=== PATIENT | male | born 1945 | race Caucasian/White ===

== ENCOUNTER 2016-06-09 11:16 | Outpatient (CLI) | payer MEDICARE, OTHER | END 2016-06-09 11:17 | disposition home or self-care (01) | DX: R05 Cough (principal) ==

== ENCOUNTER 2016-07-22 10:02 | Day surgery (SDC) | payer MEDICARE, OTHER ==
[2016-07-22] MEDS ORDERED: LACTATED RINGERS 1,000 ML IV ONE ×2 (10:32→12:51)
[2016-07-22] MEDS ORDERED: fentaNYL 100 MCG/2 ML VIAL IVP ONE (12:16)
[2016-07-22] MEDS ORDERED: MIDAZOLAM 2 MG/2 ML VIAL IVP ONE (12:16)
== END 2016-07-22 10:03 | disposition home or self-care (01) ==
PROC: 0DJD8ZZ Inspection of Lower Intestinal Tract, Via Natural or Artificial Opening Endoscopic (ICD-10-PCS; principal; 2016-07-22 11:15)
DX: Z12.11 Encounter for screening for malignant neoplasm of colon (principal); Z80.42 Family history of malignant neoplasm of prostate; N40.0 Benign prostatic hyperplasia without lower urinary tract symptoms; K64.8 Other hemorrhoids; K57.30 Diverticulosis of large intestine without perforation or abscess without bleeding
CPT/HCPCS: G0121; J7120

== ENCOUNTER 2017-10-16 14:11 | Outpatient (CLI) | payer MEDICARE, OTHER | END 2017-10-16 14:12 | disposition home or self-care (01) | LOC: RT.S 14:11 | PROVIDERS: ATTEND Nurse Practitioner Family | DX: R07.9 Chest pain, unspecified (principal) | CPT/HCPCS: 93005 ==

== ENCOUNTER 2017-10-19 10:54 | Outpatient (CLI) | payer MEDICARE, OTHER ==
[2017-10-19 17:50] LABS: BASOPHILS % (AUTO) 0.7 %; EOSINOPHILS # (AUTO) 0.1 10^3/uL (0.0-0.7); EOSINOPHILS % (AUTO) 1.4 %; HGB - HEMOGLOBIN 10.1 g/dL (14.0-18.0); LYMPHOCYTES # (AUTO) 1.2 10^3/uL (1.5-3.5); LYMPHOCYTES % (AUTO) 22.9 %; MEAN CORPUSCULAR HGB CONC 31.7 g/dL (32.0-36.0); MEAN CORPUSCULAR VOLUME 94.4 fL (80.0-94.0); MONOCYTES # (AUTO) 0.4 10^3/uL (0.0-1.0); MONOCYTES % (AUTO) 8.4 %; NEUTROPHILS # (AUTO) 3.4 10^3/uL (1.5-6.6); NEUTROPHILS % (AUTO) 66.6 %; PLT - PLATELET COUNT 245 10^3/uL (130-450); RED BLOOD COUNT 3.38 10^6/uL (4.70-6.10); RED CELL DISTRIBUTION WIDTH 12.6 % (12.0-15.0); WHITE BLOOD COUNT 5.1 x10^3/uL (4.8-10.8)
[2017-10-19 18:50] LABS: ALBUMIN 3.6 g/dL (3.2-5.5); ALBUMIN/GLOBULIN RATIO 0.8 (1.0-2.2); ALKALINE PHOSPHATASE 46 IU/L (42-121); ALT ALANINE AMINOTRANSFERASE 10 IU/L (10-60); AST ASPARTATE AMINOTRANSFERASE 12 IU/L (10-42); BILIRUBIN,TOTAL 0.7 mg/dL (0.2-1.0); BUN - BLOOD UREA NITROGEN 57 mg/dL (6-20); CALCIUM 9.8 mg/dL (8.5-10.3); CARBON DIOXIDE - CO2 24 mmol/L (21-32); CHLORIDE 103 mmol/L (101-111); CHOL/HDL RATIO 12.1 (<5.0); CHOLESTEROL 340 mg/dL; CREATININE 6.4 mg/dL (0.6-1.2); GFR - MDRD 9 (>89); GLUCOSE 85 mg/dL (70-100); HDL CHOLESTEROL 28 mg/dL; LDL CHOLESTEROL,CALCULATED 255 mg/dL; LDL/HDL RATIO 9.1 (<3.6); SODIUM 138 mmol/L (135-145); TOTAL PROTEIN 7.9 g/dL (6.7-8.2); VLDL CHOLESTEROL 57 mg/dL
[2017-10-19 19:48] LABS: HB2 TOTAL 10.8 g/dL; HEMOGLOBIN A1C 0.45 g/dL
== END 2017-10-19 10:55 | disposition home or self-care (01) ==
LOC: LAB.S 10:54
PROVIDERS: ATTEND Nurse Practitioner Family
DX: R07.89 Other chest pain (principal); R73.01 Impaired fasting glucose; Z12.5 Encounter for screening for malignant neoplasm of prostate; E78.5 Hyperlipidemia, unspecified
CPT/HCPCS: 36415; 80053; 80061; 83036; 84443; 85025; G0103; 83721; 84153

== ENCOUNTER 2017-10-21 13:41 | Outpatient (CLI) | payer MEDICARE, OTHER | END 2017-10-21 13:42 | disposition home or self-care (01) | LOC: DI 13:41 | PROVIDERS: ATTEND Nurse Practitioner Family | DX: R07.89 Other chest pain (principal); I51.7 Cardiomegaly | CPT/HCPCS: 93306 ==

== ENCOUNTER 2017-10-21 13:53 | Outpatient (CLI) | payer MEDICARE, OTHER ==
--- NOTE | 2017-10-21 17:12 | Ultrasound Report ---
RETROPERITONEAL ULTRASOUND: 10/21/2017 HISTORY: New acute renal failure. TECHNIQUE: Real-time scanning by the cigar packer with saved static images reviewed. FINDINGS: Right kidney 12.5 x 7 x 5 Cm. Left kidney 12.5 x 6.7 x 5.7 cm. Massive bilateral hydroureteronephrosis. Pre-void bladder volume 1620 mL, post void 1440 mL. Left ureteral jet seen. Right not definitely identified. A bladder diverticulum may be present. Prostate 5 x 4.4 x 6.2 cm, approximately 71 mL. IMPRESSION: BILATERAL HYDROURETERONEPHROSIS SECONDARY TO A MARKEDLY DISTENDED URINARY BLADDER. ENLARGED PROSTATE, VOLUME [address] ML Results called to Dr[address] Heaven Padilla 3:30 p.m. 10/21/2017 and the patient is directed to the emergency room. TD: 10/21/2017 15:47 MTDD
== END 2017-10-21 13:54 | disposition home or self-care (01) ==
LOC: DI 13:53
PROVIDERS: ATTEND Nurse Practitioner Family
DX: N13.30 Unspecified hydronephrosis (principal); N40.0 Benign prostatic hyperplasia without lower urinary tract symptoms
CPT/HCPCS: 76770

== ENCOUNTER 2017-10-21 15:34 | Emergency (ER) | payer MEDICARE, OTHER ==
[2017-10-21 15:42] VITALS: BP 165/89
[2017-10-21] MEDS ORDERED: LIDOCAINE 2% URO-JET 5 ML SYRINGE UR STA (15:46)
--- NOTE | 2017-10-21 16:09 | ED Physician Documentation ---
PD HPI MALE - Stated complaint Stated Complaint: MALE - Chief complaint Chief Complaint: General - History obtained from History obtained from: Patient, Family - History of Present Illness Timing - onset: Unknown Timing - duration: Weeks, Months Timing - details: Gradual onset, Still present Associated symptoms: Urinary frequency Similar symptoms before: Has not had sx before Recently seen: Clinic - Additional information Additional information: 71-year-old male who was previously well and on no medications has developed some exertional dyspnea over the past year. He eventually became concerned and went into see the doctor. He has not seen a physician in 4-5 years. Blood was drawn and the patient was found to have an elevated BUN and creatinine at 57 and 6.9 and an ultrasound was obtained showing hydronephrosis bilaterally and a markedly full bladder. Patient has been sent to the emergency department for evaluation of urinary retention. Review of Systems Constitutional: reports: Fatigue. denies: Fever, Chills, Myalgias Eyes: denies: Decreased vision Ears: denies: Ear pain Nose: denies: Rhinorrhea / runny nose, Congestion Throat: denies: Sore throat Cardiac: reports: Chest pain / pressure. denies: Palpitations Respiratory: reports: Dyspnea. denies: Cough GI: reports: Abdominal Pain. denies: Nausea, Vomiting, Constipation, Diarrhea : reports: Frequency, Hesitancy. denies: Dysuria Skin: denies: Rash Musculoskeletal: denies: Neck pain, Back pain, Extremity pain Neurologic: denies: Generalized weakness, Focal weakness, Numbness PD PAST MEDICAL HISTORY - Past Medical History Cardiovascular: High cholesterol, Murmur Respiratory: None Neuro: Headaches Endocrine/Autoimmune: None GI: GERD, Colon polyps : Benign prostate hypertrophy HEENT: Chronic vision loss Psych: None Musculoskeletal: None Derm: Other - Past Surgical History Past Surgical History: Yes General: Colonoscopy HEENT: Cataracts Derm: Skin cancer surgery - Present Medications Home Medications: Ambulatory Orders Medication Instructions Recorded Confirmed Tamsulosin [Flomax] 0.4 mg PO DAILY #20 capsule 10/21/17 - Allergies Allergies/Adverse Reactions: Allergies Allergy/AdvReac Type Severity Reaction Status Date / Time tetracycline AdvReac Unknown Verified 08/16/14 09:53 - Social History Does the pt smoke?: No Smoking Status: Never smoker Does the pt drink ETOH?: Yes Does the pt have substance abuse?: No PD ED PE NORMAL - Vitals Vital signs reviewed: Yes (hypertension ) - General General: Alert and oriented X 3, No acute distress, Well developed/nourished - HEENT HEENT: Atraumatic, PERRL, EOMI - Neck Neck: Supple, no meningeal sign - Cardiac Cardiac: RRR, No murmur - Respiratory Respiratory: No respiratory distress, Clear bilaterally - Abdomen Abdomen: Soft, Non tender, Other (The bladder is firm non-tender and palpable to the umbilcus) - Back Back: No CVA TTP, No spinal TTP - Derm Derm: Normal color, Warm and dry, No rash - Extremities Extremities: No deformity, No edema - Neuro Neuro: No motor deficit, No sensory deficit Eye Opening: Spontaneous Motor: Obeys Commands Verbal: Oriented GCS Score: 15 - Psych Psych: Normal mood, Normal affect Results - Vitals Vitals: Vital Signs - 24 hr 10/21/17 15:37 Temperature 36.6 C Heart Rate 66 Respiratory 16 Rate Blood Pressure 165/89 H O2 Saturation 100 Oxygen O2 Source Room air PD MEDICAL DECISION MAKING - ED course Complexity details: reviewed results, re-evaluated patient, considered differential, d/w patient, d/w family ED course: 71-year-old male with urinary retention that is been present for at least more than 1 week by evaluation of the creatinine. A Blood catheter is placed in 2 L of urine are drained. I have instructed the patient he will likely need to have the catheter in place for more than 10 days and will need follow-up with urology. I did tell him to expect to have his kidney functions improve over the next several days. Departure - Departure Disposition: 01 Home, Self Care Clinical Impression: Urinary retention Condition: Stable Instructions: ED Retention Urinary Male, ED Catheter Care Blood Follow-Up: Heaven Padilla ARNP [Primary Care Provider] - Prescriptions: Tamsulosin [Flomax] 0.4 mg PO DAILY #20 capsule
[2017-10-21 16:44] LABS: BILIRUBIN,URINE NEGATIVE (NEGATIVE); CLARITY,URINE CLEAR (CLEAR); GLUCOSE, URINE (UA) NEGATIVE (NEGATIVE); KETONES,URINE (UA) NEGATIVE (NEGATIVE); LEUKOCYTE ESTERASE, URINE SMALL (NEGATIVE); NITRITE,URINE NEGATIVE (NEGATIVE); OCCULT BLOOD,URINE TRACE-INTA (NEGATIVE); PROTEIN,URINE 30 mg/dL (NEGATIVE); UROBILINOGEN,URINE 0.2 (NORMAL) E.U./dL (NORMAL)
[2017-10-21 16:53] LABS: BACTERIA,URINE None Seen /HPF (None Seen); RBC,URINE 0-5 /HPF (0-5); SQUAMOUS EPITHELIAL CELL,UR NONE SEEN (<= Few)
== END 2017-10-21 16:36 | disposition home or self-care (01) ==
LOC: ED 15:34
DX: R33.9 Retention of urine, unspecified (principal); E78.00 Pure hypercholesterolemia, unspecified; N17.9 Acute kidney failure, unspecified; R07.89 Other chest pain
CPT/HCPCS: 51702; 76770; 81001; 81003; 87086; 93306; 99283

== ENCOUNTER 2017-10-26 10:50 | Outpatient (CLI) | payer MEDICARE, OTHER ==
[2017-10-26 18:52] LABS: CALCIUM 9.8 mg/dL (8.5-10.3); CREATININE 5.5 mg/dL (0.6-1.2); PSA FREE 7.388 ng/mL (0.16-2.81)
[2017-10-26 18:53] LABS: PSA TOTAL 18.281 ng/mL (0.000-2.000)
== END 2017-10-26 10:51 | disposition home or self-care (01) ==
LOC: LAB.S 10:50
PROVIDERS: ATTEND Nurse Practitioner Family
DX: N17.9 Acute kidney failure, unspecified (principal); R97.20 Elevated prostate specific antigen [PSA]
CPT/HCPCS: 36415; 80048; 82043; 83880; 84154

== ENCOUNTER 2017-12-14 10:42 | Outpatient (CLI) | payer MEDICARE, OTHER ==
[2017-12-14 19:22] LABS: ALBUMIN 3.2 g/dL (3.2-5.5); CALCIUM 9.5 mg/dL (8.5-10.3); CREATININE 4.1 mg/dL (0.6-1.2); PHOSPHORUS 4.3 mg/dL (2.5-4.6)
== END 2017-12-14 10:43 | disposition home or self-care (01) ==
LOC: LAB.S 10:42
PROVIDERS: ATTEND Internal Medicine Nephrology
DX: N18.4 Chronic kidney disease, stage 4 (severe) (principal)
CPT/HCPCS: 36415; 80069

== ENCOUNTER 2017-12-28 11:05 | Outpatient (CLI) | payer MEDICARE, OTHER ==
[2017-12-28 18:23] LABS: ALBUMIN 3.6 g/dL (3.2-5.5); CALCIUM 9.9 mg/dL (8.5-10.3); CREATININE 4.2 mg/dL (0.6-1.2); PHOSPHORUS 3.2 mg/dL (2.5-4.6)
== END 2017-12-28 11:06 | disposition home or self-care (01) ==
LOC: LAB.S 11:05
PROVIDERS: ATTEND Internal Medicine Nephrology
DX: N18.4 Chronic kidney disease, stage 4 (severe) (principal)
CPT/HCPCS: 36415; 80069

== ENCOUNTER 2018-01-11 11:32 | Outpatient (CLI) | payer MEDICARE, OTHER ==
[2018-01-11 20:51] LABS: ALBUMIN 3.5 g/dL (3.2-5.5); CALCIUM 9.6 mg/dL (8.5-10.3); PHOSPHORUS 3.4 mg/dL (2.5-4.6)
== END 2018-01-11 11:33 | disposition home or self-care (01) ==
LOC: LAB.S 11:32
PROVIDERS: ATTEND Internal Medicine Nephrology
DX: N18.4 Chronic kidney disease, stage 4 (severe) (principal)
CPT/HCPCS: 36415; 80069

== ENCOUNTER 2018-01-25 11:23 | Outpatient (CLI) | payer MEDICARE, OTHER ==
[2018-01-25 18:49] LABS: ALBUMIN 3.4 g/dL (3.2-5.5); CALCIUM 9.6 mg/dL (8.5-10.3); CREATININE 4.1 mg/dL (0.6-1.2)
== END 2018-01-25 11:24 ==
LOC: LAB.S 11:23
PROVIDERS: ATTEND Internal Medicine Nephrology
DX: N18.4 Chronic kidney disease, stage 4 (severe) (principal)
CPT/HCPCS: 36415; 80069

== ENCOUNTER 2018-03-08 13:52 | Outpatient (CLI) | payer MEDICARE, OTHER ==
[2018-03-08 19:13] LABS: ALBUMIN 3.6 g/dL (3.2-5.5); CALCIUM 9.5 mg/dL (8.5-10.3); CREATININE 3.8 mg/dL (0.6-1.2); PHOSPHORUS 3.7 mg/dL (2.5-4.6)
== END 2018-03-08 13:53 | disposition home or self-care (01) ==
LOC: LAB.S 13:52
PROVIDERS: ATTEND Internal Medicine Nephrology
DX: N18.4 Chronic kidney disease, stage 4 (severe) (principal)
CPT/HCPCS: 36415; 80069

== ENCOUNTER 2018-04-03 13:13 | Outpatient (CLI) | payer MEDICARE, OTHER ==
[2018-04-03 13:51] LABS: HGB - HEMOGLOBIN 11.6 g/dL (14.0-18.0); MEAN CORPUSCULAR HEMOGLOBIN 31.3 pg (27.0-31.0); MEAN CORPUSCULAR HGB CONC 33.6 g/dL (32.0-36.0); MEAN CORPUSCULAR VOLUME 93.2 fL (80.0-94.0); MEAN PLATELET VOLUME 8.3 fL (7.4-11.4); RED BLOOD COUNT 3.72 10^6/uL (4.70-6.10); RED CELL DISTRIBUTION WIDTH 12.5 % (12.0-15.0)
[2018-04-03 14:03] LABS: % IRON SATURATION 27 % (20-50); ALBUMIN 3.7 g/dL (3.2-5.5); BUN - BLOOD UREA NITROGEN 47 mg/dL (6-20); CALCIUM 9.5 mg/dL (8.5-10.3); CARBON DIOXIDE - CO2 24 mmol/L (21-32); CHLORIDE 107 mmol/L (101-111); CHOL/HDL RATIO 7.1 (<5.0); CHOLESTEROL 212 mg/dL; GFR - MDRD 15 (>89); GLUCOSE 98 mg/dL (70-100); HDL CHOLESTEROL 30 mg/dL; IRON 77 ug/dL (45-182); LDL CHOLESTEROL,CALCULATED 148 mg/dL; LDL/HDL RATIO 4.9 (<3.6); PHOSPHORUS 3.5 mg/dL (2.5-4.6); SODIUM 137 mmol/L (135-145); TOTAL IRON BINDING CAPACITY 284 ug/dL (250-450); TRANSFERRIN 203 mg/dL (180-329); VLDL CHOLESTEROL 34 mg/dL
[2018-04-03 14:19] LABS: FERRITIN 121.6 ng/mL (23.9-336.2)
== END 2018-04-03 13:14 | disposition home or self-care (01) ==
LOC: LAB 13:13
PROVIDERS: ATTEND Internal Medicine Cardiovascular Disease
DX: E78.49 Other hyperlipidemia (principal); N18.5 Chronic kidney disease, stage 5
CPT/HCPCS: 36415; 80061; 80069; 82306; 82728; 83540; 83721; 83970; 84466; 85027

== ENCOUNTER 2018-04-21 10:02 | Outpatient (CLI) | payer MEDICARE, OTHER ==
[2018-04-21 17:45] LABS: ALBUMIN 3.4 g/dL (3.2-5.5); CALCIUM 9.4 mg/dL (8.5-10.3); CREATININE 3.9 mg/dL (0.6-1.2); PHOSPHORUS 3.2 mg/dL (2.5-4.6)
== END 2018-04-21 10:03 | disposition home or self-care (01) ==
LOC: LAB.F 10:02
PROVIDERS: ATTEND Internal Medicine Nephrology
DX: N18.5 Chronic kidney disease, stage 5 (principal)
CPT/HCPCS: 36415; 80069

== ENCOUNTER 2018-06-14 08:00 | Outpatient (CLI) | payer MEDICARE, OTHER ==
[2018-06-14 17:54] LABS: ALBUMIN 3.5 g/dL (3.2-5.5); CALCIUM 9.9 mg/dL (8.5-10.3); CREATININE 3.9 mg/dL (0.6-1.2)
== END 2018-06-14 23:59 | disposition home or self-care (01) ==
LOC: LAB.S 08:00
PROVIDERS: ATTEND Internal Medicine Nephrology
DX: N18.5 Chronic kidney disease, stage 5 (principal)
CPT/HCPCS: 36415; 80069

== ENCOUNTER 2018-07-27 14:21 | Outpatient (CLI) | payer MEDICARE, OTHER ==
[2018-07-27 18:15] LABS: ALBUMIN 3.8 g/dL (3.2-5.5); CALCIUM 9.7 mg/dL (8.5-10.3); CREATININE 3.6 mg/dL (0.6-1.2); PHOSPHORUS 3.4 mg/dL (2.5-4.6)
== END 2018-07-27 14:22 | disposition home or self-care (01) ==
LOC: LAB.F 14:21
PROVIDERS: ATTEND Internal Medicine Nephrology
DX: N18.5 Chronic kidney disease, stage 5 (principal)
CPT/HCPCS: 36415; 80069

== ENCOUNTER 2019-01-20 13:44 | Outpatient (CLI) | payer MEDICARE, OTHER ==
[2019-01-20 18:01] LABS: ALBUMIN 3.6 g/dL (3.2-5.5); CALCIUM 9.3 mg/dL (8.5-10.3); CREATININE 3.7 mg/dL (0.6-1.2); PHOSPHORUS 3.5 mg/dL (2.5-4.6)
== END 2019-01-20 13:45 | disposition home or self-care (01) ==
LOC: LAB.S 13:44
PROVIDERS: ATTEND Internal Medicine Nephrology
DX: N18.5 Chronic kidney disease, stage 5 (principal)
CPT/HCPCS: 36415; 80069

== ENCOUNTER 2019-08-09 09:05 | Outpatient (CLI) | payer MEDICARE, OTHER ==
[2019-08-09 17:19] LABS: ALBUMIN 3.6 g/dL (3.2-5.5); CALCIUM 9.3 mg/dL (8.5-10.3); CREATININE 3.8 mg/dL (0.6-1.2); PHOSPHORUS 3.7 mg/dL (2.5-4.6)
== END 2019-08-09 09:06 | disposition home or self-care (01) ==
LOC: LAB.S 09:05
PROVIDERS: ATTEND Internal Medicine Nephrology
DX: I12.0 Hypertensive chronic kidney disease with stage 5 chronic kidney disease or end stage renal disease (principal); N18.5 Chronic kidney disease, stage 5; N13.739 Vesicoureteral-reflux with reflux nephropathy with hydroureter, unspecified
CPT/HCPCS: 36415; 80069

== ENCOUNTER 2020-04-11 16:24 | Outpatient (CLI) | payer MEDICARE, OTHER ==
[2020-04-11 20:18] LABS: ALBUMIN 3.5 g/dL (3.2-5.5); CALCIUM 9.7 mg/dL (8.5-10.3); PHOSPHORUS 3.3 mg/dL (2.5-4.6)
== END 2020-04-11 16:25 | disposition home or self-care (01) ==
LOC: LAB.S 16:24
PROVIDERS: ATTEND Internal Medicine Nephrology
DX: N18.4 Chronic kidney disease, stage 4 (severe) (principal)
CPT/HCPCS: 36415; 80069

== ENCOUNTER 2020-05-15 10:31 | Outpatient (CLI) | payer MEDICARE, OTHER ==
[2020-05-15 15:06] LABS: MEAN CORPUSCULAR HEMOGLOBIN 30.5 pg (27.0-31.0); MEAN CORPUSCULAR HGB CONC 30.2 g/dL (32.0-36.0); MEAN CORPUSCULAR VOLUME 100.8 fL (80.0-94.0); MEAN PLATELET VOLUME 10.1 fL (7.4-11.4); RED BLOOD COUNT 3.94 10^6/uL (4.70-6.10); RED CELL DISTRIBUTION WIDTH 12.1 % (12.0-15.0); WHITE BLOOD COUNT 5.8 x10^3/uL (4.8-10.8)
[2020-05-15 15:23] LABS: ALBUMIN 3.7 g/dL (3.2-5.5); ALBUMIN/GLOBULIN RATIO 0.8 (1.0-2.2); ALKALINE PHOSPHATASE 58 IU/L (42-121); ALT ALANINE AMINOTRANSFERASE 15 IU/L (10-60); AST ASPARTATE AMINOTRANSFERASE 15 IU/L (10-42); BILIRUBIN,TOTAL 0.4 mg/dL (0.2-1.0); BUN - BLOOD UREA NITROGEN 45 mg/dL (6-20); CARBON DIOXIDE - CO2 24 mmol/L (21-32); CHLORIDE 108 mmol/L (101-111); CHOL/HDL RATIO 8.4 (<5.0); CHOLESTEROL 218 mg/dL; CREATININE 3.9 mg/dL (0.6-1.2); GLUCOSE 99 mg/dL (70-100); HDL CHOLESTEROL 26 mg/dL; LDL CHOLESTEROL,CALCULATED 154 mg/dL; LDL/HDL RATIO 5.9 (<3.6); SODIUM 141 mmol/L (135-145); TOTAL PROTEIN 8.1 g/dL (6.7-8.2); VLDL CHOLESTEROL 38 mg/dL
== END 2020-05-15 10:32 | disposition home or self-care (01) ==
LOC: LAB.S 10:31
PROVIDERS: ATTEND Internal Medicine Cardiovascular Disease
DX: E78.49 Other hyperlipidemia (principal); I10 Essential (primary) hypertension
CPT/HCPCS: 36415; 80053; 80061; 83721; 85027

== ENCOUNTER 2021-05-03 11:15 | Outpatient (CLI) | payer MEDICARE, OTHER ==
[2021-05-03 15:34] LABS: ALBUMIN 3.6 g/dL (3.2-5.5); CALCIUM 9.5 mg/dL (8.5-10.3); PHOSPHORUS 4.2 mg/dL (2.5-4.6); POTASSIUM 4.4 mmol/L (3.5-5.0)
== END 2021-05-03 11:16 | disposition home or self-care (01) ==
LOC: LAB.S 11:15
PROVIDERS: ATTEND Internal Medicine Nephrology
DX: N18.5 Chronic kidney disease, stage 5 (principal)
CPT/HCPCS: 36415; 80069

== ENCOUNTER 2021-09-09 12:00 | Outpatient (CLI) | payer MEDICARE, OTHER | END 2021-09-09 12:01 | disposition short-term general hospital (02) | LOC: EMS 12:00 | DX: M54.2 Cervicalgia (principal); M54.50 Low back pain, unspecified; R41.82 Altered mental status, unspecified; V49.9XXA Car occupant (driver) (passenger) injured in unspecified traffic accident, initial encounter; Y92.413 State road as the place of occurrence of the external cause | CPT/HCPCS: A0425; A0429 ==

== ENCOUNTER 2021-09-25 08:00 | Outpatient (CLI) | payer MEDICARE, OTHER ==
[2021-09-25 19:54] LABS: BASOPHILS % (AUTO) 0.3 %; EOSINOPHILS % (AUTO) 0.2 %; LYMPHOCYTES # (AUTO) 0.9 10^3/uL (1.5-3.5); LYMPHOCYTES % (AUTO) 8.2 %; MEAN CORPUSCULAR HEMOGLOBIN 31.3 pg (27.0-31.0); MEAN CORPUSCULAR HGB CONC 31.4 g/dL (32.0-36.0); MEAN CORPUSCULAR VOLUME 99.4 fL (80.0-94.0); MONOCYTES # (AUTO) 0.6 10^3/uL (0.0-1.0); MONOCYTES % (AUTO) 5.4 %; NEUTROPHILS # (AUTO) 9.6 10^3/uL (1.5-6.6); NEUTROPHILS % (AUTO) 85.2 %; PLT - PLATELET COUNT 497 10^3/uL (130-450); RED BLOOD COUNT 3.52 10^6/uL (4.70-6.10); RED CELL DISTRIBUTION WIDTH 14.5 % (12.0-15.0); WHITE BLOOD COUNT 11.2 x10^3/uL (4.8-10.8)
[2021-09-25 20:06] LABS: ALBUMIN 3.4 g/dL (3.2-5.5); ALBUMIN/GLOBULIN RATIO 0.6 (1.0-2.2); ALKALINE PHOSPHATASE 107 IU/L (42-121); ALT ALANINE AMINOTRANSFERASE < 10 IU/L (10-60); AST ASPARTATE AMINOTRANSFERASE 15 IU/L (10-42); BILIRUBIN,TOTAL 0.6 mg/dL (0.2-1.0); CALCIUM 9.9 mg/dL (8.5-10.3); CARBON DIOXIDE - CO2 19 mmol/L (21-32); CHLORIDE 101 mmol/L (101-111); GFR - MDRD 7 (>89); GLUCOSE 97 mg/dL (70-100); POTASSIUM 4.8 mmol/L (3.5-5.0); SODIUM 135 mmol/L (135-145); TOTAL PROTEIN 8.9 g/dL (6.7-8.2)
[2021-09-27 11:23] LABS: BUN - BLOOD UREA NITROGEN 86 mg/dL (6-20)
[2021-09-27 11:24] LABS: CREATININE 7.3 mg/dL (0.6-1.2)
== END 2021-09-25 23:59 | disposition home or self-care (01) ==
LOC: LAB.S 08:00
PROVIDERS: ATTEND Physician Assistant
DX: R63.4 Abnormal weight loss (principal)
CPT/HCPCS: 36415; 80053; 85025

== ENCOUNTER 2021-09-30 17:40 | Outpatient (CLI) | payer MEDICARE, OTHER ==
[2021-09-30 20:16] LABS: ALBUMIN 3.2 g/dL (3.2-5.5); CALCIUM 9.7 mg/dL (8.5-10.3); CREATININE 6.7 mg/dL (0.6-1.2); PHOSPHORUS 5.8 mg/dL (2.5-4.6); POTASSIUM 3.8 mmol/L (3.5-5.0)
== END 2021-09-30 17:41 | disposition home or self-care (01) ==
LOC: LAB.S 17:40
PROVIDERS: ATTEND Family Medicine
DX: N18.5 Chronic kidney disease, stage 5 (principal)
CPT/HCPCS: 36415; 80048; 80069

== ENCOUNTER 2022-02-13 13:18 | Outpatient (CLI) | payer MEDICARE, OTHER ==
--- NOTE | 2022-02-13 17:43 | CT Report ---
PROCEDURE: CT lumbar spine without contrast INDICATIONS: LUMBAR BURST FX TECHNIQUE: Noncontrast 3 mm thick sections acquired from the T12 level to the sacrum. Sagittal and coronal refo rmats were constructed. For radiation dose reduction, the following was used: automated exposure co ntrol, adjustment of mA and/or kV according to patient size. COMPARISON: None available FINDINGS: Image quality: Excellent. L1 comminuted compression fracture with retropulsed fracture fragment is transfixed by posterior sonia and screw instrumentation extending from T11 through L3. Pedicle screws are augmented with bone cemen t in the vertebral bodies as well. Associated posterior lateral graft noted. Instrumentation is well positioned without evidence of hardware failure or loosening. Cross bar at T12-L1. There has been a decompressive laminectomy at L1 results in a widely patent central canal. At L2-3, mild disc space narrowing and circumferential disc bulge results in mild central and moderat e left foraminal stenosis appear no right foraminal stenosis. At L3-4, circumferential disc bulge with mild central stenosis present. Mild bilateral foraminal sten osis. At the remaining levels, no central or foraminal stenosis. Dense aortic atherosclerotic vascular calcification present without aneurysm. Multiple diverticula ar ise from the sigmoid colon. Bilateral renal atrophy noted without hydronephrosis. IMPRESSION: Traumatic L1 compression fracture with retropulsed fracture fragment and decompressive laminectomy is well supported by posterior sonia and screw instrumentation at T11-L3. No evidence of hardware failure or loosening. Reviewed by: Jc Cash MD on 02/13/2022 4:42 PM KETURAH Approved by: Jc Cash MD on 02/13/2022 4:42 PM [place] Station ID: [id number]
== END 2022-02-13 13:19 | disposition home or self-care (01) ==
LOC: DI 13:18
PROVIDERS: ATTEND Neurological Surgery
DX: S32.011A Stable burst fracture of first lumbar vertebra, initial encounter for closed fracture (principal)

== ENCOUNTER 2022-02-17 09:13 | Outpatient (CLI) | payer MEDICARE, OTHER ==
[2022-02-17 15:05] LABS: ALBUMIN 3.5 g/dL (3.2-5.5); CALCIUM 9.9 mg/dL (8.5-10.3); CREATININE 5.1 mg/dL (0.6-1.2); PHOSPHORUS 4.7 mg/dL (2.5-4.6); POTASSIUM 4.2 mmol/L (3.5-5.0)
== END 2022-02-17 09:14 | disposition home or self-care (01) ==
LOC: LAB.S 09:13
PROVIDERS: ATTEND Internal Medicine Nephrology
DX: N18.5 Chronic kidney disease, stage 5 (principal)
CPT/HCPCS: 36415; 80069

== ENCOUNTER 2022-05-16 13:29 | Outpatient (CLI) | payer MEDICARE, OTHER ==
[2022-05-16 20:12] LABS: ALBUMIN 3.7 g/dL (3.2-5.5); CALCIUM 9.6 mg/dL (8.5-10.3); CREATININE 5.2 mg/dL (0.6-1.2); PHOSPHORUS 4.6 mg/dL (2.5-4.6); POTASSIUM 4.4 mmol/L (3.5-5.0)
== END 2022-05-16 13:30 | disposition home or self-care (01) ==
LOC: LAB.S 13:29
PROVIDERS: ATTEND Internal Medicine Nephrology
DX: N18.5 Chronic kidney disease, stage 5 (principal)
CPT/HCPCS: 36415; 80069

== ENCOUNTER 2022-08-11 12:24 | Outpatient (CLI) | payer MEDICARE, OTHER ==
--- NOTE | 2022-08-11 14:10 | CT Report ---
PROCEDURE: LUMBAR SPINE WO INDICATIONS: LUMBAR BURST FX TECHNIQUE: Noncontrast 3 mm thick sections acquired from the T12 level to the sacrum. Sagittal and coronal refo rmats were constructed. For radiation dose reduction, the following was used: automated exposure co ntrol, adjustment of mA and/or kV according to patient size. COMPARISON: 02/13/2022. FINDINGS: Image quality: Excellent. CT of the lumbar spine without contrast shows a patient is status post posterior spinal fusion of T11 through L3. This again transfixes a stable-appearing burst fracture involving the L1 vertebral body. Bone cement is again noted surrounding the pedicle screws at T11, T12, and L2. New on today's examination there is some mild subtle lucency surrounding the pedicle screws at L3. Th is may represent some mild hardware loosening. Mild to moderate retropulsion of the fracture fragment at the superior endplate of L1 appear stable f rom prior examination. Previously noted degenerative changes involving the lumbar spine appear relatively stable over the sh ort interval. Atherosclerotic vascular calcifications are noted. IMPRESSION: 1. Status post posterior spinal fusion through a burst fracture involving the L1 vertebral body from T11 through L3. 2. There is mild lucency surrounding the pedicle screws at L3 may represent some mild hardware loosen ing. 3. Mild to moderate retropulsion of fracture fragments at the superior endplate of L1 remains stable. 4. Stable degenerative changes. 5. Atherosclerotic vascular calcifications. Reviewed by: Kyle Reynoso MD on 08/11/2022 2:09 PM PDT Approved by: Kyle Reynoso MD on 08/11/2022 2:09 PM PDT Station ID: [id number]
== END 2022-08-11 12:25 | disposition home or self-care (01) ==
LOC: DI 12:24
PROVIDERS: ATTEND Neurological Surgery
DX: S32.001D Stable burst fracture of unspecified lumbar vertebra, subsequent encounter for fracture with routine healing (principal); M47.816 Spondylosis without myelopathy or radiculopathy, lumbar region; I70.90 Unspecified atherosclerosis; Z98.1 Arthrodesis status

== ENCOUNTER 2022-11-17 13:48 | Outpatient (CLI) | payer MEDICARE, OTHER ==
[2022-11-17 20:23] LABS: ALBUMIN 3.5 g/dL (3.2-5.5); CALCIUM 9.6 mg/dL (8.5-10.3); CREATININE 5.3 mg/dL (0.6-1.2); PHOSPHORUS 3.4 mg/dL (2.5-4.6); POTASSIUM 4.6 mmol/L (3.5-5.0)
[2022-11-18 15:22] LABS: CREATININE,URINE 63.1 mg/dL; PROTEIN/CREATININE RATIO,URINE 1.3 (<=0.2)
== END 2022-11-17 13:49 | disposition home or self-care (01) ==
LOC: LAB.S 13:48
PROVIDERS: ATTEND Internal Medicine Nephrology
DX: N18.5 Chronic kidney disease, stage 5 (principal)
CPT/HCPCS: 36415; 80069; 82306; 82570; 83970; 84156

== ENCOUNTER 2022-12-23 14:09 | Outpatient (CLI) | payer MEDICARE, OTHER ==
[2022-12-23 20:05] LABS: ALBUMIN 3.9 g/dL (3.2-5.5); CALCIUM 9.6 mg/dL (8.5-10.3); CREATININE 5.9 mg/dL (0.6-1.3); CREATININE,URINE 80.4 mg/dL; PHOSPHORUS 4.6 mg/dL (2.5-5.0); POTASSIUM 4.5 mmol/L (3.5-4.5); PROTEIN/CREATININE RATIO,URINE 1.5 (<=0.2)
== END 2022-12-23 14:10 | disposition home or self-care (01) ==
LOC: LAB.S 14:09
PROVIDERS: ATTEND Internal Medicine Nephrology
DX: N18.5 Chronic kidney disease, stage 5 (principal)
CPT/HCPCS: 36415; 80069; 82570; 84156

== ENCOUNTER 2023-01-30 13:37 | Outpatient (CLI) | payer MEDICARE, OTHER ==
--- NOTE | 2023-01-30 16:52 | XRAY Report ---
PROCEDURE: Chest 2 View X-Ray INDICATIONS: STAGE 5 CHRONIC KIDNEY DISEASE TECHNIQUE: 2 views of the chest were acquired. COMPARISON: 06/09/2016 FINDINGS: Surgical changes and devices: Partially imaged upper lumbar fixation rods and transpedicular screws. Lungs and pleura: No pleural effusions or pneumothorax. A stable calcified right lung base granulom a. Lungs are otherwise clear. Mediastinum: Mediastinal contours appear normal. Heart size is normal. Bones and chest wall: No suspicious bony lesions. Overlying soft tissues appear unremarkable. IMPRESSION: No acute cardiopulmonary process. Reviewed by: Maura Vila MD on 01/30/2023 4:50 PM PDT Approved by: Maura Vila MD on 01/30/2023 4:50 PM PDT Station ID: [id number]
[2023-01-30 20:18] LABS: CALCIUM 9.5 mg/dL (8.5-10.3); CREATININE 5.5 mg/dL (0.6-1.3); PHOSPHORUS 4.7 mg/dL (2.5-5.0); POTASSIUM 4.2 mmol/L (3.5-4.5)
[2023-01-30 20:31] LABS: CREATININE,URINE 76.6 mg/dL; PROTEIN/CREATININE RATIO,URINE 1.6 (<=0.2)
== END 2023-01-30 13:38 | disposition home or self-care (01) ==
LOC: DI.S 13:37
PROVIDERS: ATTEND Internal Medicine Nephrology
DX: N18.5 Chronic kidney disease, stage 5 (principal)
CPT/HCPCS: 36415; 80069; 82570; 84156

== ENCOUNTER 2023-04-29 08:00 | Outpatient (CLI) | payer MEDICARE, OTHER | END 2023-04-29 23:59 | disposition home or self-care (01) | LOC: LAB.S 08:00 | PROVIDERS: ATTEND Internal Medicine | DX: N39.0 Urinary tract infection, site not specified (principal) | CPT/HCPCS: 87077; 87086; 87181 ==